=== PATIENT | male | born 2000 | race Caucasian/White ===

== ENCOUNTER 2022-11-05 10:37 | Emergency (ER) | payer OTHER ==
[2022-11-05 11:02] VITALS: BP 126/77; PULSE 91; RESP 16; TEMP 97.9; BMI 39.0
== END 2022-11-05 12:38 | disposition home or self-care (01) ==
LOC: JER 10:37
DX: R00.2 Palpitations (principal); R06.02 Shortness of breath
CPT/HCPCS: 71046-TC-FY; 93005; 93010; 99284-25